=== PATIENT | male | born 1945 | race Caucasian/White ===

== ENCOUNTER 2017-09-27 07:23 | Day surgery (SDC) | payer MEDICARE ==
[2017-09-27] MEDS ORDERED: PROPOFOL 10 MG/ML VIAL IV ONE (07:24)
[2017-09-27] MEDS ORDERED: FENTANYL PF 100MCG/2ML VIAL IV ONE (07:24)
--- NOTE | 2017-09-28 13:19 | Operative Note ---
DATE OF SURGERY: 09/27/2017 OPERATION: 1. ESOPHAGOGASTRODUODENOSCOPY. 2. COLONOSCOPY with cold and hot snare polypectomies and ink injection. PREOPERATIVE DIAGNOSIS: Anemia. POSTOPERATIVE DIAGNOSES: 1. Normal upper endoscopy. 2. Colonic diverticulosis, left side greater than right. 3. Multiple colon polyp. ESTIMATED BLOOD LOSS: Minimal. SPECIMENS: Transverse, descending, sigmoid, and rectal polyps. COMPLICATIONS: None apparent. PREPARATION QUALITY: Good. PROCEDURE: After informed consent was obtained from the patient, he was placed in the left lateral decubitus position in the endoscopy suite, sedated and monitored by the department of anesthesia. A well-lubricated [id number] gastroscope was placed in the posterior oropharynx and under direct visualization passed to the proximal esophagus. The endoscope was advanced through the proximal, mid, and distal esophagus. The GE junction and esophagus were unremarkable. No ulcers , erosions, strictures, varices, or mass lesions were seen. The gastric body, antrum, pylorus, duodenal bulb and sweep were unremarkable. No changes, fresh or old blood, or celiac sprue were noted in the small bowel. No ulcers or mass lesions were seen. J-turn views of the proximal stomach were unrevealing. The endoscope was then straightened and retracted from the patient with no new findings noted. Digital rectal exam revealed no palpable mass. A well-lubricated [id number] colonoscope was inserted into the rectum and advanced through a severely diverticulated sigmoid colon to the descending colon, transverse colon, ascending colon, ultimately to the cecum. Preparation quality was good. The cecum and ascending colon were unremarkable. There were scattered diverticula in the ascending colon. There were scattered diverticula in the ascending colon. In the transverse colon, there was a 5 mm sessile polyp removed with a cold snare. There was a similar polyp in the descending colon, which was removed with a cold snare. Each polyp was retrieved without difficulty. There was minimal bleeding at the sites. In the sigmoid colon, there was a sessile polyp which was removed with a hot snare as well as pedunculated polyp in that area removed with a cold snare. The area was inked for need for recurrent visualization or perhaps even if surgical resection becomes necessary. There is minimal to no bleeding at the sites. In the rectum, there were 2 sessile polyps each measuring between 5 and 6 mm. One was removed with a cold snare, the other with a hot snare. Minimal bleeding was noted at the cold snare site. The hot snare site was with no bleeding noted. J-turn views of the anorectum were otherwise unremarkable. There were also scattered diverticula in the sigmoid colon which were quite numerous. RECOMMENDATIONS: Patient should follow a soft, low-fiber diet for the next 2 weeks and a high-fiber diet thereafter. He will require repeat colonoscopy in 1 to 3 years pending tissue histology. As always, thank you for allowing me to participate in the health care of your patients. CC: Saul Massey, DO [email or web address]
== END 2017-09-27 09:42 | disposition home or self-care (01) ==
LOC: HOP 07:23
PROVIDERS: ATTEND Internal Medicine Gastroenterology
DX: D64.9 Anemia, unspecified (principal); D12.4 Benign neoplasm of descending colon; D12.3 Benign neoplasm of transverse colon; D12.5 Benign neoplasm of sigmoid colon; K62.1 Rectal polyp; K57.30 Diverticulosis of large intestine without perforation or abscess without bleeding; I10 Essential (primary) hypertension; E78.00 Pure hypercholesterolemia, unspecified; K21.9 Gastro-esophageal reflux disease without esophagitis; G62.9 Polyneuropathy, unspecified; E11.9 Type 2 diabetes mellitus without complications; Z79.84 Long term (current) use of oral hypoglycemic drugs